=== PATIENT | male | born 1965 | race Caucasian/White ===

== ENCOUNTER 2017-03-17 01:14 | Emergency (ER) | payer SELFPAY ==
[2017-03-17 02:08] LABS: BASOPHIL % 0.6 % (0-2); PLATELET COUNT 282 x10^3mcL (130-400); RED CELL DISTRIBUTION WIDTH 13.6 % (11.5-14.5)
[2017-03-17 02:11] LABS: CALCIUM 8.9 mg/dL (8.5-10.1); CARBON DIOXIDE 29.3 mmol/L (21-32); CHLORIDE SERUM 109 mmol/L (98-107); CREATININE SERUM 1.2 mg/dL (0.7-1.3); GFR1 > 60 mL/min; GLUCOSE SERUM 104 mg/dL (74-106); POTASSIUM SERUM 4.2 mmol/L (3.5-5.1); SODIUM SERUM 144 mmol/L (136-145)
[2017-03-17 02:16] LABS: ALBUMIN 3.5 g/dL (3.4-5.0); ALKALINE PHOSPHATASE 66 U/L (46-116); ALT/SGPT 18 U/L (16-63); AST/SGOT 9 U/L (15-37); BILIRUBIN TOTAL 0.32 mg/dL (0.20-1.00); TOTAL PROTEIN, SERUM 6.4 g/dL (6.4-8.2)
[2017-03-17 02:53] VITALS: BP 120/78
== END 2017-03-17 02:53 | disposition home or self-care (01) ==
LOC: ED 01:14
PROVIDERS: Emergency Medicine Emergency Medical Services
DX: F41.9 Anxiety disorder, unspecified (principal)
CPT/HCPCS: 36415; 83880

== ENCOUNTER 2020-02-04 09:57 | Emergency (ER) | payer MEDICAID, SELFPAY ==
[~2020-02-04] VITALS: Ht 172.7 cm; Wt 85.3 kg
[2020-02-04 10:09] VITALS: Ht 172.7 cm; Wt 85.3 kg
[2020-02-04 11:07] LABS: BASOPHIL % 0.3 % (0-2); PLATELET COUNT 412 x10^3mcL (130-400); RED CELL DISTRIBUTION WIDTH 13.6 % (11.5-14.5)
[2020-02-04 11:15] LABS: CALCIUM 9.1 mg/dL (8.5-10.1); CHLORIDE SERUM 103 mmol/L (98-107); CREATININE SERUM 1.3 mg/dL (0.7-1.3); GFR1 > 60 mL/min; GLUCOSE SERUM 148 mg/dL (74-106); POTASSIUM SERUM 3.8 mmol/L (3.5-5.1); SODIUM SERUM 137 mmol/L (136-145)
[2020-02-04 11:22] LABS: ALKALINE PHOSPHATASE 96 U/L (46-116); ALT/SGPT 51 U/L (16-63); AST/SGOT 27 U/L (15-37); BILIRUBIN TOTAL 0.53 mg/dL (0.20-1.00); C REACTIVE PROTEIN 1.9 mg/dL (<=0.9); LACTIC DEHYDROGENASE (LDH) 196 U/L (100-190); TOTAL PROTEIN, SERUM 7.5 g/dL (6.4-8.2)
[2020-02-04 11:23] LABS: ALBUMIN 3.3 g/dL (3.4-5.0)
[2020-02-04 13:08] VITALS: BP 118/68
[2020-02-04 13:18] LABS: microscopic required? YES; urine erythrocyte TRACE (NEGATIVE)
== END 2020-02-04 11:30 | disposition home or self-care (01) ==
LOC: ED 09:57
PROVIDERS: Emergency Medicine
DX: B34.9 Viral infection, unspecified (principal); F10.10 Alcohol abuse, uncomplicated; F15.10 Other stimulant abuse, uncomplicated; Z20.828 Contact with and (suspected) exposure to other viral communicable diseases
CPT/HCPCS: 36600; 83880; 85378; 87804; J7030; Q0092; U0003